=== PATIENT | female | born 1995 | race Caucasian/White ===

== ENCOUNTER 2016-09-04 18:32 | Emergency (ER) | payer BC ==
[~2016-09-04] VITALS: Ht 167.6 cm; Wt 67.1 kg
[2016-09-04 18:40] VITALS: BP 125/88; PULSE 122; RESP 19; TEMP 100.5; O2SAT 98
--- NOTE | 2016-09-04 19:00 | NUR ---
Patient to ER bed 8 to gown for evaluation. Side rails up. Report given to GEOVANY Bhagat.
--- NOTE | 2016-09-04 19:19 | NUR ---
Pt brought in by parents in stable condition. Pt c/o generalized body aches w/ temp of 104. Pt stated that everything hurts and everything that began today. +n/v. No acute distress noted at this time, will continue to monitor
[2016-09-04] MEDS ORDERED: NACL 0.9% 1,000 ML IV SCH (19:42)
--- NOTE | 2016-09-04 19:42 | NUR ---
ER at bedside examining patient.
[2016-09-04] MEDS ORDERED: KETOROLAC TROMETHAMINE 30 MG VIAL IVP ONE (19:45)
[2016-09-04] MEDS ORDERED: ONDANSETRON HCL 4 MG/2 ML VIAL IVP ONE (19:45)
[2016-09-04] MEDS ORDERED: DEXAMETHASONE SOD PHOSPHATE 10 MG/ML VIAL IVP ONE (19:45)
[2016-09-04] MEDS ORDERED: PROCHLORPERAZINE EDISYLATE 10 MG/2 ML VIAL IVP ONE (19:45)
[2016-09-04 20:07] LABS: BASOPHILS % (AUTO) 0.2 % (0.0-2.0); EOSINOPHILS % (AUTO) 0.1 % (0.0-4.0); HEMOGLOBIN 14.6 g/dL (12.0-16.0); LYMPHOCYTES # (AUTO) 0.5 K/uL (1.0-5.5); LYMPHOCYTES % (AUTO) 4.7 % (20.5-51.5); MEAN CORPUSCULAR HEMOGLOBIN 31 pg (27-31); MEAN CORPUSCULAR HGB CONC 35 % (32-36); MEAN CORPUSCULAR VOLUME 89 fL (79.0-98.0); MONOCYTES # (AUTO) 0.4 K/uL (0.0-1.0); MONOCYTES % (AUTO) 4.1 % (1.7-9.3); NEUTROPHILS # (AUTO) 8.7 K/uL (1.8-7.7); NEUTROPHILS % (AUTO) 90.9 % (40.0-70.0); PLATELET COUNT (AUTO) 260 K/uL (130-430); RED BLOOD CELL COUNT(AUTO) 4.72 MIL/uL (4.2-6.2); RED CELL DISTRIBUTION WIDTH 12.1 % (9.0-15.0); WHITE BLOOD COUNT (AUTO) 9.6 K/uL (4.8-10.8)
[2016-09-04 20:11] LABS: CALCIUM 8.4 mg/dL (8.4-11.0); CREATININE 1.15 mg/dL (0.55-1.30); POTASSIUM 3.5 mmol/L (3.5-5.1)
[2016-09-04] MEDS ORDERED: DIPHENHYDRAMINE INJ 50 MG/ML VIAL ONE (20:12)
--- NOTE | 2016-09-04 20:12 | NUR ---
Gave pt toradol and pt had an adverse reaction. Pt stated that she was itchy every where. Dr. Robins aware and administered 50mg of Benadryl
[2016-09-04 20:15] LABS: ALBUMIN 3.4 g/dL (3.4-4.8); TOTAL BILIRUBIN 0.8 mg/dL (0.0-1.0); TOTAL PROTEIN, SERUM 7.2 g/dL (6.4-8.3)
[2016-09-04 20:15] LABS: BILIRUBIN,URINE NEGATIVE (NEGATIVE); BLOOD, URINE NEGATIVE (NEGATIVE); CLARITY/URINE CLEAR (CLEAR); COLOR,URINE YELLOW (YELLOW); GLUCOSE,URINE NEGATIVE (NEGATIVE); KETONES,URINE TRACE (NEGATIVE); LEUKOCYTE ESTERASE ,URINE NEGATIVE (NEGATIVE); NITRITE, URINE NEGATIVE (NEGATIVE); PH,URINE 5.5 (5.0-8.0); PROTEIN URINE NEGATIVE (NEGATIVE); UROBILINOGEN,URINE 0.2 (0.2-1.0)
[2016-09-04] MEDS ORDERED: DIPHENHYDRAMINE INJ 50 MG/ML VIAL IVP ONE (20:15)
[2016-09-04 20:20] LABS: PROTHROMBIN TIME 10.9 SECS (9.5-12.5)
[2016-09-04] MEDS ORDERED: MAG HYDROX/AL HYDROX/SIMETH 30 ML, LIDOCAINE VISCOUS 2% 15ML (PO) 10 ML, BELLADONNA ALK... PO ONE ×3 (21:15)
[2016-09-04 22:02] VITALS: BP 125/88; PULSE 89; RESP 19; TEMP 99.8; O2SAT 98
--- NOTE | 2016-09-04 22:02 | NUR ---
Patient given written and verbal discharge instructions and verbalizes understanding. ER MD MITCHELL discussed with patient the results and treatment provided. Patient in stable condition. ID arm band removed. IV catheter removed intact and dressing applied, no active bleeding. Rx of ZOFRAN given. Patient educated on pain management and to follow up with PMD. Pain Scale 0/10. Opportunity for questions provided and answered.
== END 2016-09-04 22:02 | disposition home or self-care (01) ==
LOC: SED 18:32
DX: A08.4 Viral intestinal infection, unspecified (principal)
CPT/HCPCS: 36415; 74176; 80053; 81000; 81003; 83605; 83690; 85025; 85610; 85730; 86710; 87040; 96361; 96374; 96375; 99285; J0780; J1100; J1200; J1885; J2001; J2405; J7030